=== PATIENT | male | born 1950 | race Caucasian/White ===

== ENCOUNTER 2016-06-04 06:17 | Day surgery (SDC) | payer MEDICARE, OTHER ==
[2016-06-04] MEDS ORDERED: Lactated Ringers 1,000 ML IV SCH (07:00)
[2016-06-04] MEDS ORDERED: Propofol 200 MG/20 ML SDV ONE ×2 (07:07→07:58)
[2016-06-04] MEDS ORDERED: fentaNYL 100 MCG/2 ML SDV ONE (07:08)
[2016-06-04] MEDS ORDERED: Midazolam 1 MG/ML 2 ML SDV ONE (07:08)
--- NOTE | 2016-06-04 08:22 | PCM.OPNOTE ---
- General Post-Op/Procedure Note Date of Surgery/Procedure: 06/04/16 Operative Procedure(s): Colonoscopy with biopsy at the cecum Findings: Multiple diverticuli throughout the entire colon and 3 polypoid lesions at the cecum. Pre Op Diagnosis: History of polyps Post-Op Diagnosis: 3 polypoid lesions at the cecum Primary Surgeon: Hong Valdivia Sr Condition: Good Free Text/Narrative:: Ajay is a 65-year-old male comes in for a colonoscopy. He has had polyps in the past. The risks and benefits were explained to the patient. Anesthesia was given by the nursing assistance. During the procedure use 200 mg of propofol 100 mcg of fentanyl and 2 mg of Versed. The Olympus 180L scope was used. With the gloved finger the rectum was examined and the prostate was symmetrical and soft with a grade 3/6 in size. The tube was placed into the rectum and advanced under direct vision. There were multiple diverticuli noted throughout the entire colon. At the cecum noted one large polyp which was biopsied and 2 smaller ones right in the cecal pouch and another one just before the larger polyp. Pictures were taken. There was minimal bleeding noted. The tube was slowly retracted again noted the multiple diverticuli. Got good observation throughout the entire mucosa. The tube was removed and the patient tolerated the procedure well. Preop: History of polyps. Postop: 3 polyps one smaller one and then a large amount and then another smaller one at the cecum. The larger one had a broad base and was unable to use a polypectomy snare. Pathology report is pending I feel that this will need to be resected.
[2016-06-04 09:31] VITALS: BP 128/64
--- NOTE | 2016-06-10 12:05 | CONS ---
DATE OF SERVICE: 06/04/2016 REFERRING PHYSICIAN: CONSULTING PHYSICIAN: Dimitris Garcia MD HISTORY OF PRESENT ILLNESS: This is a 65-year-old who was undergoing screening colonoscopy this morning, was noted to have three polyps in the cecum and ascending colon. One of these was sessile and not amenable to endoscopic removal. Given this, he was referred for consideration of a right colectomy. The patient's past medical history includes hypertension, hyperlipidemia, mild obesity, and mild chronic kidney disease. He is also a Type II diabetic and has treated hypothyroidism. Examination shows no significant abdominal abnormalities and no abdominal incisions are noted. Review of the endoscopic pictures shows a well-defined sessile polyp in the area of junction of the cecum and ascending colon. Recommendation would be to proceed with a right colectomy. This would include lymphatic drainage of the ileocolic and right colic vessels and would prevent the present polyp from likely becoming malignant, although he does have some possibility of it being malignant at present. Potential risks were reviewed with the patient, the fact that it would be extremely unlikely to result in a ostomy was gone over with the patient as well, and at this point, he wishes to defer surgical treatment for a period of time. He does acknowledge the need to have this, at some point, done. We will see him back on the first Wednesday in June for recheck and to discuss the surgical timing. Dimitris Garcia MD /[id number]
== END 2016-06-04 09:50 | disposition home or self-care (01) ==
LOC: JP.SDS 06:17
PROVIDERS: ATTEND Internal Medicine
DX: Z12.11 Encounter for screening for malignant neoplasm of colon (principal); D12.0 Benign neoplasm of cecum; K57.30 Diverticulosis of large intestine without perforation or abscess without bleeding; E03.9 Hypothyroidism, unspecified; E78.5 Hyperlipidemia, unspecified; F17.210 Nicotine dependence, cigarettes, uncomplicated; E11.22 Type 2 diabetes mellitus with diabetic chronic kidney disease; I12.9 Hypertensive chronic kidney disease with stage 1 through stage 4 chronic kidney disease, or unspecified chronic kidney disease; N18.9 Chronic kidney disease, unspecified; E66.9 Obesity, unspecified
CPT/HCPCS: 45380; 88305; J2250; J2704; J3010; J7120

== ENCOUNTER 2016-07-13 06:59 | Inpatient (IN) | payer MEDICARE, OTHER ==
[2016-07-13] MEDS ORDERED: Propofol 200 MG/20 ML SDV ONE (08:14)
[2016-07-13] MEDS ORDERED: fentaNYL 250 MCG/5 ML SDV ONE (08:14)
[2016-07-13] MEDS ORDERED: Dexamethasone 4 MG/ML SDV ONE (08:14)
[2016-07-13] MEDS ORDERED: Ondansetron 4 MG/2 ML SDV ONE (08:14)
[2016-07-13] MEDS ORDERED: Neostigmine Methylsulfate 1 MG/ML 5 ML Syringe ONE ×2 (08:14→11:07)
[2016-07-13] MEDS ORDERED: Rocuronium 50 MG/5 ML Vial ONE (08:14)
[2016-07-13] MEDS ORDERED: Dextrose 5%-Lactated Ringers 1,000 ML IV SCH (08:30)
[2016-07-13] MEDS ORDERED: cefOXitin 2 GM in Sodium Chloride 0.9% 50 ML IV ONE (09:00)
[2016-07-13] MEDS ORDERED: Naloxone 0.4 MG/ML SDV IVPUSH PRN (09:15)
[2016-07-13] MEDS ORDERED: Lidocaine 2% 100 MG/5 ML Syringe IVPUSH ONE (10:00)
[2016-07-13] MEDS ORDERED: Scopolamine 1.5 MG Transdermal Patch ONE (10:00)
[2016-07-13] MEDS ORDERED: Ketamine 500 MG/5 ML MDV IV SCH (10:00)
[2016-07-13] MEDS ORDERED: Meropenem 500 MG SDV ONE (10:39)
[2016-07-13] MEDS ORDERED: fentaNYL 100 MCG/2 ML SDV ONE (10:59)
[2016-07-13] MEDS ORDERED: Acetaminophen 1,000 MG in Premix Bag 1 BAG IV ONE (11:26)
[2016-07-13] MEDS ORDERED: Glucose Gel 15 GM in 37.5 GM Tube PO PRN (11:37)
[2016-07-13] MEDS ORDERED: Glucagon,Human Recombinant 1 MG Vial IM PRN (11:37)
[2016-07-13] MEDS ORDERED: 50% Dextrose in Water 50 ML Syringe IVPUSH PRN (11:37)
[2016-07-13] MEDS: Insulin Aspart 100 Units/ML 3 ML Pen SUBCUT PRN ×3 (11:46→21:33)
[2016-07-13] MEDS ORDERED: Ondansetron 4 MG/2 ML SDV IVPUSH PRN (13:04)
[2016-07-13] MEDS ORDERED: hydrOXYzine HCl 25 MG Tab PO PRN (13:05)
[2016-07-13] MEDS ORDERED: hydrOXYzine HCl 50 MG/ML SDV IM PRN (13:06)
[2016-07-13] MEDS ORDERED: Naloxone 0.4 MG/ML SDV IV PRN (13:14)
[2016-07-13] MEDS ORDERED: diphenhydrAMINE 50 MG/ML SDV IVPUSH PRN (13:14)
[2016-07-13] MEDS: Lidocaine 0.4%/D5W 2 GM/500 ML BAG IV SCH (15:00)
[2016-07-13] MEDS: Dextrose 5%-Lactated Ringers 1,000 ML IV SCH ×2 (15:01→19:45)
[2016-07-13] MEDS: Metoclopramide 10 MG/2 ML SDV IVPUSH SCH ×2 (15:02→21:32)
[2016-07-13] MEDS: VERIFY SCOPOLAMINE PATCH TOP SCH (15:02)
[2016-07-13] MEDS: Levothyroxine 100 MCG, Levothyroxine 25 MCG PO SCH ×2 (15:03)
[2016-07-13] MEDS: fentaNYL 2,500 MCG in Sodium Chloride 0.9% 200 ML EPIDUR SCH (15:09)
[2016-07-13] MEDS: Acetaminophen 500 MG Tab PO SCH ×2 (17:48→23:41)
[2016-07-13] MEDS: cefOXitin 2 GM in Sodium Chloride 0.9% 50 ML IV SCH ×2 (17:51→21:32)
[2016-07-13] MEDS: Enoxaparin 40 MG/0.4 ML Syringe SUBCUT SCH (20:16)
[2016-07-13] MEDS: Tamsulosin 0.4 MG Cap.ER PO SCH (20:18)
[2016-07-14] MEDS: Lidocaine 0.4%/D5W 2 GM/500 ML BAG IV SCH (02:00)
[2016-07-14] MEDS: Dextrose 5%-Lactated Ringers 1,000 ML IV SCH ×2 (02:02→07:58)
[2016-07-14] MEDS: cefOXitin 2 GM in Sodium Chloride 0.9% 50 ML IV SCH (03:34)
[2016-07-14] MEDS: fentaNYL 2,500 MCG in Sodium Chloride 0.9% 200 ML EPIDUR SCH ×2 (04:19→23:46)
[2016-07-14] MEDS: Acetaminophen 500 MG Tab PO SCH ×4 (05:17→23:53)
[2016-07-14] MEDS: Metoclopramide 10 MG/2 ML SDV IVPUSH SCH ×3 (05:17→21:52)
[2016-07-14] MEDS: Levothyroxine 100 MCG, Levothyroxine 25 MCG PO SCH ×2 (07:55)
[2016-07-14] MEDS ORDERED: Dextrose 5%-Lactated Ringers 1,000 ML IV SCH (08:00)
[2016-07-14] MEDS: Bisacodyl 5 MG Tab PO SCH ×2 (10:05→20:34)
[2016-07-14] MEDS: Sennosides 8.6 MG Tab PO SCH (10:07)
[2016-07-14] MEDS: Enoxaparin 40 MG/0.4 ML Syringe SUBCUT SCH (10:08)
[2016-07-14] MEDS: Ibuprofen 600 MG Tab PO SCH ×3 (10:08→21:52)
[2016-07-14] MEDS: Lisinopril 20 MG Tab PO SCH (10:09)
[2016-07-14] MEDS: VERIFY SCOPOLAMINE PATCH TOP SCH (10:09)
[2016-07-14] MEDS: Insulin Aspart 100 Units/ML 3 ML Pen SUBCUT PRN ×2 (10:12→12:28)
[2016-07-14] MEDS: Tamsulosin 0.4 MG Cap.ER PO SCH (20:35)
[2016-07-15] MEDS: Ibuprofen 600 MG Tab PO SCH ×4 (05:28→21:55)
[2016-07-15] MEDS: Metoclopramide 10 MG/2 ML SDV IVPUSH SCH ×2 (05:28→14:18)
[2016-07-15] MEDS: Acetaminophen 500 MG Tab PO SCH ×3 (05:28→18:04)
[2016-07-15] MEDS ORDERED: Meropenem 500 MG SDV ONE (06:44)
[2016-07-15] MEDS ORDERED: Bupivacaine 0.5% 50 ML MDV ONE (06:44)
[2016-07-15] MEDS ORDERED: Lidocaine 1% with EPINEPHrine 1:100,000 50 ML MDV ONE (06:44)
[2016-07-15] MEDS ORDERED: Propofol 200 MG/20 ML SDV ONE (07:18)
[2016-07-15] MEDS ORDERED: fentaNYL 100 MCG/2 ML SDV ONE (07:18)
[2016-07-15] MEDS: Levothyroxine 100 MCG, Levothyroxine 25 MCG PO SCH ×2 (08:32)
[2016-07-15] MEDS: VERIFY SCOPOLAMINE PATCH TOP SCH (08:35)
[2016-07-15] MEDS: Sennosides 8.6 MG Tab PO SCH (08:55)
[2016-07-15] MEDS: Bisacodyl 5 MG Tab PO SCH ×2 (08:55→20:40)
[2016-07-15] MEDS: Lisinopril 20 MG Tab PO SCH (11:39)
[2016-07-15] MEDS: Insulin Aspart 100 Units/ML 3 ML Pen SUBCUT PRN (12:07)
[2016-07-15] MEDS: Tamsulosin 0.4 MG Cap.ER PO SCH (20:38)
[2016-07-16] MEDS: Acetaminophen 500 MG Tab PO SCH ×2 (00:15→05:56)
[2016-07-16] MEDS: Ibuprofen 600 MG Tab PO SCH ×2 (05:56→09:25)
--- NOTE | 2016-07-16 07:27 | PN ---
DATE OF SERVICE: 07/15/2016 SUBJECTIVE: Ajay is postop day #2, he will be having a delayed primary closure. Today, blood sugar was 135. Pain has been controlled. His epidural will be done at around noon. REVIEW OF SYSTEMS: Remainder of review of systems negative for any pertinent positives and negatives. OBJECTIVE: GENERAL: Ajay Seals is a 65-year-old male. He is alert and orientated. VITAL SIGNS: TPR 98.4, 72, 16, blood pressure 118/60. HEENT: Negative. NECK: Supple. HEART: Regular rate and rhythm. LUNGS: Clear. ABDOMEN: Abdomen dressings dry and intact. EXTREMITIES: Without peripheral edema. ASSESSMENT: Right colon resection. Date of surgery 07/13/2016. PLAN: 1. Delayed primary closure at 07:15 today. 2. Orders to be written postoperatively. Tania Carlisle PA-C /[id number]
[2016-07-16] MEDS: Levothyroxine 100 MCG, Levothyroxine 25 MCG PO SCH ×2 (07:39)
[2016-07-16 08:43] VITALS: BP 158/76
[2016-07-16] MEDS ORDERED: Scopolamine 1.5 MG Transdermal Patch TOP SCH (09:00)
[2016-07-16] MEDS: Bisacodyl 5 MG Tab PO SCH (09:21)
[2016-07-16] MEDS: Sennosides 8.6 MG Tab PO SCH (09:21)
[2016-07-16] MEDS: Lisinopril 20 MG Tab PO SCH (09:23)
[2016-07-16] MEDS: VERIFY SCOPOLAMINE PATCH TOP SCH (09:24)
--- NOTE | 2016-07-17 01:24 | DISCH ---
ADMISSION DIAGNOSES: 1. Sessile polyp. 2. Diabetes type 2. 3. Hypertension. 4. Hyperlipidemia. DISCHARGE DIAGNOSIS: Exploratory laparotomy with right colectomy and repair of incarcerated umbilical hernia for sessile polyp in the cecum and incarcerated umbilical hernia on 07/13/2016. Delayed primary closure on 07/15/2016. HISTORY: Ajay Seals is a 65-year-old male with a sessile polyp of the cecum and strong family history of colon cancer. After preoperative evaluation and discussion of possible risks and possible complications, he wished to proceed with surgical procedure. HOSPITAL COURSE: Ajay had a surgery on 07/13/2016. He had no operative complications. He had delayed primary closure on 07/15/2016. His diet was gradually progressed. He started having bowel movements. He was afebrile. Pain was controlled. Activity was good and he was ready to be discharged to home on 07/16/2016. PHYSICAL EXAMINATION: GENERAL: Ajay Seals is a 65-year-old male. He is alert orientated. SKIN: Warm and dry. Color is good. VITAL SIGNS: TPR 97.4, 70, 18. Blood pressure 158/78. O2 is 94% on room air. HEENT: Negative. NECK: Supple. HEART: Regular rate and rhythm. LUNGS: Clear. ABDOMEN: Aquacel dressing was removed. Sumit in place. Incisions healing well. MADISON drain incision is intact and it has put out 145 mL in the past 24 hours of a light pink serous drainage. EXTREMITIES: Without peripheral edema. DISPOSITION: Discharged to home. CONDITION: Stable and improving. FOLLOWUP: With Dimitris Garcia MD at [facility] on 07/22/2016 at 10:00 a.m. NEW PRESCRIPTIONS: 1. Tylenol Extra Strength 1000 mg oral every 6 hours for 2 weeks and stop. 2. Ibuprofen 600 mg oral 4 times a day for 2 weeks and then stop #50. 3. Senna 17.2 mg oral daily. 4. Flomax 0.4 mg oral at bedtime #30. 5. He is to resume taking his aspirin 325 mg daily. 6. Levothyroxine 125 mcg oral daily. 7. Tradjenta 5 mg oral daily. 8. Lisinopril 40 mg oral daily. 9. Simvastatin 40 mg oral daily. DIET AFTER DISCHARGE: Usual diet as tolerated. Drink 8 to 10 glasses of water a day. DISCHARGE INSTRUCTIONS: Activity: No lifting greater than 10 pounds for 6 weeks. Walk inside your home 6-8 times daily. Shower/bathing: May shower. Notify provider if any fever, increased pain, nausea, or vomiting. Keep site clean and dry, wear abdominal binder for 6 weeks and then as tolerated. Special instruction: Use incentive spirometer 10 times every hour while awake for 2 weeks. Empty and record MADISON drain 4 times a day and when half full. Bring record of drainage to clinic.
--- NOTE | 2016-07-19 12:53 | PN ---
DATE OF SERVICE: 07/14/2016 The patient has been afebrile with stable vital signs. Pain control appears to be quite good with the epidural catheter and other agents. We will begin ibuprofen today in addition to Tylenol and will receive the delayed primary closure tomorrow with epidural will be turned off at that time. Otherwise, blood sugars are up a little bit this morning, but he will be getting his linagliptin dose this morning. Dimitris Garcia MD /[id number]
--- NOTE | 2016-07-19 13:49 | PN ---
DATE OF SERVICE: 07/15/2016 The patient has been afebrile with stable vital signs. Oral intake has been fairly good and pain control appears to be satisfactory at this point. The plan today will be to proceed with a delayed primary closure of abdominal incision We will discontinue the epidural catheter. We can add tramadol if he is having any increased discomfort, otherwise, he will continue the scheduled Tylenol and ibuprofen. Joe catheter will come out and the discharge may be either tomorrow or the next day depending on his clinical status. Dimitris Garcia MD /[id number]
--- NOTE | 2016-07-20 12:38 | OR ---
DATE OF PROCEDURE: 07/13/2016 PREOPERATIVE DIAGNOSIS: Sessile polyp involving the cecum. POSTOPERATIVE DIAGNOSES: 1. Sessile polyp involving the cecum. 2. Incarcerated umbilical hernia. OPERATIVE PROCEDURE: Exploratory laparotomy with: 1. Right hemicolectomy with ileocolic anastomosis (74381). 2. Repair of incarcerated umbilical hernia (74509). ANESTHESIA: General plus epidural. UTILITY BILL COMPLAINTS INVESTIGATOR: Tania Carlisle PA-C. INDICATIONS FOR PROCEDURE: This is a 65-year-old, status post recent colonoscopy, which showed a sessile polyp in the cecum. Biopsy of this showed tubular adenoma. Given the nature of the polyp, the patient will undergo a right colectomy at this time. Potential risks including bleeding, infection, leaks from various GI tract closures, problems with bowel obstruction over time as well as possibility of cardiopulmonary, septic, or hemorrhagic complications leading to were discussed, and the patient wishes to proceed. DETAILS OF PROCEDURE: The patient was taken to the operating room and after an epidural catheter was placed, general endotracheal anesthetic was induced and the abdomen prepped and draped. Joe catheter was inserted. A right subcostal incision was then made and carried down through the skin and subcutaneous tissue and through the musculature and into the peritoneal cavity. Upon entering the peritoneal cavity, general exploration undertaken. The patient was noted to have an incarcerated umbilical hernia containing some omentum within it. This was initially divided adjacent to the hernia to allow mobilization of the transverse colon. General exploration was undertaken. The patient was noted to have a thickening of the appendix, perhaps related to previous appendicitis. Otherwise, there was some lymphadenopathy involving the right ileocolic chain, but no other intraabdominal abnormalities noted. At this point, the peritoneum of the distal most small bowel, cecum, and ascending colon was divided lateral to those areas, and this allowed medial mobilization of the structures. Care was taken to avoid injury to the underlying right ureter and duodenum. The transverse colon was then divided at the point slightly to the right of the middle colic vessels and the distal small bowel was also divided in each case, these sutures were accomplished with a MARLON escobar loads. The mesentery was then divided between those 2 points using a combination of vascular mesenteric franck. Care was taken to divide the ileocolic vessels more or less at the origin to obtain as many lymph nodes as possible in that area and remove the specimen, it was then examined off the field. The polyp adjacent to the cecum was identified. The base of the appendix was opened up, and this did not appear to be neoplastic, but probably more of a chronic or old scar in that area perhaps related to previous episodes of appendicitis. At this point, the ileocolic anastomosis was accomplished with 2 internal firings of the MARLON escobar loads. The common opening was then closed transversely with purple loads and the angles anastomosed, and mesenteric defect approximated with some 3-0 Vicryl stitch along with fibrin sealant. The area of the umbilical hernia was then encountered. The defect had to be enlarged somewhat which allowed reduction of the incarcerated omentum. Once this was removed, the hernia was then repaired with a figure-eight stitch from within using #2-0 Vicryl stitch. At this point, the peritoneum and fascia were then closed with 2 layers of #2-0 Vicryl stitch. Connor-Frank drains were then placed through the stab wound across the anastomosis into the pericolic gutter on the right side. The skin and subcutaneous tissue were felt to be high risk for wound infection, so these were left open after closure of the fascial layers with the planned delayed primary closure in 48 hours. The patient was taken to the recovery room in satisfactory condition. Physician faculty i on call medical assistant, Tania Carlisle, played an essential role in assisting in this case, helping to position the patient, retract structures as needed, as well as suturing and cutting sutures when indicated. Her presence improved, the patient's safety and decreased operative time. Dimitris Garcia MD /[id number]
--- NOTE | 2016-07-20 12:44 | OR ---
DATE OF PROCEDURE: 07/15/2016 PREOPERATIVE DIAGNOSIS: Open abdominal incision. POSTOPERATIVE DIAGNOSIS: Open abdominal incision. PROCEDURE: Delayed primary closure of open abdominal incision. ANESTHESIA: IV sedation plus local. INDICATION FOR PROCEDURE: This is a 65-year-old male, status post right colectomy. At the time of the incision, he was felt to be at high risk for wound infection and primary closure was undertaken. Therefore, the wound was packed open for planned delayed primary closure at this time. Potential risks of the procedure including bleeding and infection were reviewed, and the patient wished to proceed. DETAILS OF PROCEDURE: The patient was taken to the operating room and placed in a supine position, sitting up roughly 20 to 30 degrees to minimize aspiration risk. The IV sedation was administered, after which the abdominal dressing was taken down. The incision was then inspected and found to be clean. The incision was then prepped and draped, anesthetized with 1% lidocaine mixed with Marcaine, and irrigated with meropenem-containing saline solution. A 10-Maltese round Connor-Frank drain was placed through the small stab wound and laid across the bed of the incision. The incision, which was a right subcostal incision, was then closed with a layer of 3-0 Vicryl stitch deep, 4-0 Vicryl subdermal stitch and franck for the skin. The drain was affixed with some 3-0 Vicryl stitch. The patient was taken to the recovery room in satisfactory condition, and there were no other complications. Dimitris Garcia MD /[id number]
--- NOTE | 2016-07-20 14:23 | OR ---
DATE OF PROCEDURE: 07/13/2016 PREOPERATIVE DIAGNOSIS: Open abdominal incision. POSTOPERATIVE DIAGNOSIS: Open abdominal incision. PROCEDURE: Delayed primary closure of open abdominal incision. ANESTHESIA: IV sedation plus local. INDICATION FOR PROCEDURE: The patient is a 48 hours status post right colectomy in which there was some intrinsic contamination of the skin and subcutaneous tissue, and it was felt that those layers would be at high risk for wound infection, should a primary closure be undertaken. Given this delayed primary closure is to be undertaken at this time. Potential risks including bleeding and infection were reviewed, and the patient wishes to proceed. DETAILS OF PROCEDURE: The patient was taken to the operating room and placed in the supine position. IV sedation was administered, after which the abdominal dressing was taken down and the incision was inspected and found to be clean. The wound was then prepped and draped, anesthetized with 1% lidocaine, mixed with Marcaine, and irrigated with meropenem- containing saline solution. A 10-Japanese round Connor-Frank drain was then placed lateral to the incision, this was a long left subcostal incision. The subcutaneous tissue was then closed with a deep layer of 3-0 Vicryl stitch and a more superficial layer with 4-0 Vicryl stitch and then franck for the skin. The drain was sutured to skin with some 4-0 Vicryl stitch. The patient was taken to the recovery room in satisfactory condition. There were no other no evident complications. Dimitris Garcia MD /[id number]
== END 2016-07-16 09:39 | disposition home or self-care (01) | DRG 330 ==
LOC: JP.SDS 06:59 → JP.SDSSCHI 06:59 → EDSTATUS 09:15 → JP.2SS 12:15
PROVIDERS: ADMIT Surgery; ATTEND Surgery
PROC: 0DTF0ZZ Resection of Right Large Intestine, Open Approach (ICD-10-PCS; principal; 2016-07-13)
PROC: 0WQF0ZZ Repair Abdominal Wall, Open Approach (ICD-10-PCS; principal; 2016-07-13)
PROC: 0WQF0ZZ Repair Abdominal Wall, Open Approach (ICD-10-PCS; 2016-07-15)
DX: D12.0 Benign neoplasm of cecum (principal); K42.0 Umbilical hernia with obstruction, without gangrene; Z48.1 Encounter for planned postprocedural wound closure; E78.5 Hyperlipidemia, unspecified; E03.9 Hypothyroidism, unspecified; Z79.84 Long term (current) use of oral hypoglycemic drugs; Z79.82 Long term (current) use of aspirin; Z87.891 Personal history of nicotine dependence; Z80.0 Family history of malignant neoplasm of digestive organs; I12.9 Hypertensive chronic kidney disease with stage 1 through stage 4 chronic kidney disease, or unspecified chronic kidney disease; E11.22 Type 2 diabetes mellitus with diabetic chronic kidney disease; N18.9 Chronic kidney disease, unspecified; E66.9 Obesity, unspecified; Z68.31 Body mass index [BMI] 31.0-31.9, adult
CPT/HCPCS: 82962; 88302; 88309; 94762; A9270-GY; J0131; J0694; J1100; J1650; J2001; J2020; J2185; J2405; J2704; J2765; J3010; J7030; J7042; J7050

== ENCOUNTER 2018-09-15 06:24 | Day surgery (SDC) | payer MEDICARE, OTHER ==
[2018-09-15] MEDS ORDERED: Propofol 200 MG/20 ML SDV ONE (07:07)
[2018-09-15] MEDS ORDERED: fentaNYL 100 MCG/2 ML SDV ONE (07:08)
[2018-09-15] MEDS ORDERED: Midazolam 1 MG/ML 2 ML SDV ONE (07:08)
[2018-09-15] MEDS ORDERED: Sodium Chloride 0.9% 1,000 ML IV SCH (07:15)
[2018-09-15 08:58] VITALS: BP 126/71; PULSE 54
--- NOTE | 2018-09-15 11:36 | PROC ---
DATE OF PROCEDURE: 09/15/2018 SURGEON: Hong Valdivia MD INDICATION: Ajay is a 67-year-old male, comes in for a colonoscopy. He has had a colon resection in the past. The risks and benefits were explained to the patient and was taken to the OR. PROCEDURE IN DETAIL: Anesthesia was given by nurse fitness sales consultant. During the procedure, we used 2 mg of Versed, 100 mcg of fentanyl, and 80 mg of propofol. The Olympus 180AL scope was used, was placed into the rectum and advanced under the direct vision. There were multiple large diverticula noted in the first 30 cm. The tube was advanced and did get to the site of anastomosis. Upon retraction of the tube, noted no lesions, no ulceration, no abnormalities, except for the multiple diverticula. The tube was removed. The patient tolerated the procedure well. Prior to the procedure, the rectum was examined. The prostate was a grade 3/6, symmetrical, and soft. PREOPERATIVE DIAGNOSIS: History of colon resection. POSTOPERATIVE DIAGNOSIS: Multiple diverticula. No other acute pathology noted throughout the entire colon. Hong Valdivia MD /[id number]
== END 2018-09-15 09:05 | disposition home or self-care (01) ==
LOC: JP.SDS 06:24
PROVIDERS: ATTEND Internal Medicine
DX: Z12.11 Encounter for screening for malignant neoplasm of colon (principal); K57.30 Diverticulosis of large intestine without perforation or abscess without bleeding; I12.9 Hypertensive chronic kidney disease with stage 1 through stage 4 chronic kidney disease, or unspecified chronic kidney disease; E11.22 Type 2 diabetes mellitus with diabetic chronic kidney disease; N18.9 Chronic kidney disease, unspecified; Z90.49 Acquired absence of other specified parts of digestive tract
CPT/HCPCS: G0121; J2250; J2704; J3010; J7030

== ENCOUNTER 2022-08-31 08:59 | Emergency (ER) | payer MEDICARE ==
[2022-08-31] MEDS ORDERED: Sodium Chloride 0.9% 10 ML Syringe FLUSH PRN ×2 (09:15→09:50)
[2022-08-31 09:26] LABS: BASOPHILS PERCENT AUTO 0.2 % (0.1-1.3); EOSINOPHILS ABSOLUTE AUTO 0.06 K/uL (0.00-0.40); EOSINOPHILS PERCENT AUTO 0.7 % (0.0-5.4); HEMATOCRIT 44.7 % (38.4-49.7); HEMOGLOBIN 15.3 g/dL (12.9-16.9); IMMATURE GRAN ABSOLUTE AUTO 0.04 K/uL (0.00-0.23); IMMATURE GRAN PERCENT AUTO 0.5 % (0.0-0.7); LYMPHOCYTES ABSOLUTE AUTO 1.89 K/uL (0.8-3.3); MEAN CORPUSCULAR HEMOGLOBIN 28.4 pg (31.6-35.5); MEAN CORPUSCULAR HGB CONC 34.2 g/dL (31.6-35.5); MEAN CORPUSCULAR VOLUME 82.9 fL (81.4-99.0); MONOCYTES ABSOLUTE AUTO 0.53 K/uL (0.20-0.90); MONOCYTES PERCENT AUTO 6.2 % (3.3-12.6); NEUTROPHILS ABSOLUTE AUTO 6.05 K/uL (1.0-7.6); NEUTROPHILS PERCENT AUTO 70.4 % (40.0-78.1); PLATELET COUNT,PLT 169 K/uL (130-375); RED BLOOD CELL COUNT 5.39 M/uL (4.14-5.76); WHITE BLOOD CELL COUNT,WBC 8.6 K/uL (3.2-11.0)
[2022-08-31] MEDS ORDERED: HYDROmorphone 0.5 MG/0.5 ML Syringe IVPUSH ONE ×2 (09:28→09:53)
[2022-08-31] MEDS ORDERED: Naloxone 0.4 MG/ML SDV IVPUSH PRN (09:28)
[2022-08-31 09:30] LABS: BASOPHILS ABSOLUTE AUTO 0.02 K/uL (0.00-0.10)
[2022-08-31 09:46] LABS: ALANINE AMINOTRANSFERASE,ALT 27 U/L (12-78); ALBUMIN 3.7 g/dL (3.4-5.0); ALKALINE PHOSPHATASE 67 U/L (46-116); ANION GAP 17.2 mmol/L (5.0-14.0); ASPARTATE AMNIOTRANSFERASE,AST 19 U/L (15-37); BILIRUBIN TOTAL 0.5 mg/dL (0.2-1.0); BLOOD UREA NITROGEN,BUN 17 mg/dL (7-18); CALCIUM 9.1 mg/dL (8.5-10.1); CARBON DIOXIDE,CO2 21 mmol/L (21-32); CHLORIDE,CL 99 mmol/L (100-108); CREATININE 1.4 mg/dL (0.8-1.3); EST CRCL DRUG DOSING (CG) 56.27 mL/min; ESTIMATED GFR 54 mL/min (>60); GLUCOSE RANDOM 191 mg/dL (74-106); POTASSIUM,K 4.2 mmol/L (3.6-5.2); PROTEIN TOTAL,TP 7.4 g/dL (6.4-8.2); SODIUM,NA 133 mmol/L (140-148)
[2022-08-31] MEDS ORDERED: Iopamidol 612 MG/ML 100 ML Bottle IV PRN (09:50)
[2022-08-31] MEDS ORDERED: Sodium Chloride 0.9% 1,000 ML IV ONE (09:57)
[2022-08-31] MEDS ORDERED: Sodium Chloride 0.9% 50 ML IV SCH (10:00)
[2022-08-31 11:12] VITALS: BP 141/73; PULSE 77
== END 2022-08-31 12:08 | disposition home or self-care (01) ==
LOC: JP.ED 08:59
DX: K43.9 Ventral hernia without obstruction or gangrene (principal); K43.2 Incisional hernia without obstruction or gangrene; R10.31 Right lower quadrant pain; E78.00 Pure hypercholesterolemia, unspecified; I12.9 Hypertensive chronic kidney disease with stage 1 through stage 4 chronic kidney disease, or unspecified chronic kidney disease; N18.9 Chronic kidney disease, unspecified; E03.9 Hypothyroidism, unspecified; E66.9 Obesity, unspecified; Z68.29 Body mass index [BMI] 29.0-29.9, adult; Z79.899 Other long term (current) drug therapy
CPT/HCPCS: 36415; 74177; 80053; 82800; 83605; 85025; 86140; 96361; 96374; 99284; J1170; J3490; J7030; Q9967